=== PATIENT | female | born 1975 | race Caucasian/White ===

== ENCOUNTER 2017-10-07 20:41 | Emergency (ER) | payer SELFPAY ==
[~2017-10-07] VITALS: Ht 162.6 cm; Wt 59.0 kg
[2017-10-07] MEDS ORDERED: SODIUM CHLORIDE 0.9% 1000ML 1,000 ML IV STA (21:05)
[2017-10-07] MEDS ORDERED: MORPHINE SULFATE 4 MG/ML SYR IV STA (21:05)
[2017-10-07] MEDS ORDERED: METHYLPREDNISOLONE SOD SUCC 125 MG/2ML VIAL ONE (22:50)
[2017-10-07] MEDS ORDERED: FAMOTIDINE 20 MG/2 ML VIAL IV ONE (22:51)
[2017-10-07] MEDS ORDERED: DIPHENHYDRAMINE HCL INJ 50 MG/ML VIAL ONE (22:51)
[2017-10-07] MEDS ORDERED: FAMOTIDINE 20 MG/2 ML VIAL IV STA (22:56)
[2017-10-07 22:57] LABS: BASOPHILS # (AUTO) 0.1 (0.0-0.1); BASOPHILS % 0.6 % (0.0-1.0); EOSINOPHILS # (AUTO) 0.4 (0.0-0.4); EOSINOPHILS % 2.9 % (0.0-6.0); HEMOGLOBIN 15.1 g/dL (12.0-16.0); LYMPHOCYTES # (AUTO) 2.2 (1.0-3.2); LYMPHOCYTES % 18.3 % (18.0-39.1); MEAN CORPUSCULAR HEMOGLOBIN 30.7 pg (28-32); MEAN CORPUSCULAR VOLUME 85.4 fL (81-99); MONOCYTES # (AUTO) 0.5 (0.2-0.8); MONOCYTES % 4.3 % (4.4-11.3); NEUTROPHILS # (AUTO) 8.9 (2.1-6.9); NEUTROPHILS % 73.6 % (38.7-80.0); PLATELET COUNT 188 x10e3/uL (140-360); RED BLOOD COUNT 4.92 x10e6/uL (3.6-5.1); RED CELL DISTRIBUTION WIDTH 12.5 % (11.7-14.4)
[2017-10-07] MEDS ORDERED: DIPHENHYDRAMINE HCL INJ 50 MG/ML VIAL IV ONE (23:00)
[2017-10-07] MEDS ORDERED: METHYLPREDNISOLONE SOD SUCC 125 MG/2ML VIAL IV ONE (23:00)
[2017-10-07 23:14] LABS: ALANINE AMINOTRANSFERASE 14 IU/L (0-55); ALBUMIN 3.6 g/dL (3.5-5.0); ALBUMIN/GLOBULIN RATIO 1.1 (0.8-2.0); ALKALINE PHOSPHATASE 86 IU/L (40-150); AMYLASE 25 U/L (25-125); BLOOD UREA NITROGEN 7 mg/dL (7-26); BUN/CREATININE RATIO 10 (6-25); CALCIUM 9.4 mg/dL (8.4-10.2); CARBON DIOXIDE 24 mmol/L (22-29); CHLORIDE 103 mmol/L (98-107); CREATININE, SERUM 0.72 mg/dL (0.57-1.11); EST GLOMERULAR FILTRATION RATE > 60 ML/MIN (60-); GLUCOSE 281 mg/dL (74-118); LIPASE 24 U/L (8-78); SODIUM 135 mmol/L (136-145)
[2017-10-07] MEDS ORDERED: KETOROLAC TROMETHAMINE 30 MG/ML VIAL IV STA (23:48)
[2017-10-07] MEDS ORDERED: KETOROLAC TROMETHAMINE 30 MG/ML VIAL ONE (23:50)
[2017-10-07] MEDS ORDERED: MORPHINE SULFATE 2 MG/ML SYR ONE (23:51)
[2017-10-08 00:41] VITALS: BP 136/72
== END 2017-10-08 00:43 | disposition home or self-care (01) ==
LOC: ER 20:41
DX: K02.9 Dental caries, unspecified (principal); R21 Rash and other nonspecific skin eruption
CPT/HCPCS: 36415; 80053; 82150; 83690; 85025; 99283; J1200; J1885; J2270; J2930

== ENCOUNTER 2017-12-17 10:52 | Emergency (ER) | payer SELFPAY ==
[~2017-12-17] VITALS: Ht 162.6 cm; Wt 61.7 kg
[2017-12-17] MEDS ORDERED: MORPHINE SULFATE INJ 4 MG/ML INJ IV STA ×2 (11:06→12:19)
[2017-12-17] MEDS ORDERED: ONDANSETRON HCL INJ 2 MG/ML VIAL IV STA (11:06)
[2017-12-17] MEDS ORDERED: SODIUM CHLORIDE 0.9% 1000ML 1,000 ML IV STA (11:06)
[2017-12-17 11:16] LABS: BASOPHILS # (AUTO) 0.1 (0.0-0.1); BASOPHILS % 0.6 % (0.0-1.0); EOSINOPHILS # (AUTO) 0.4 (0.0-0.4); HEMATOCRIT 44.3 % (34.2-44.1); HEMOGLOBIN 15.9 g/dL (12.0-16.0); LYMPHOCYTES # (AUTO) 3.5 (1.0-3.2); LYMPHOCYTES % 35.4 % (18.0-39.1); MEAN CORPUSCULAR HEMOGLOBIN 30.9 pg (28-32); MEAN CORPUSCULAR HGB CONC 35.9 g/dL (31-35); MONOCYTES # (AUTO) 0.5 (0.2-0.8); MONOCYTES % 4.6 % (4.4-11.3); NEUTROPHILS # (AUTO) 5.4 (2.1-6.9); NEUTROPHILS % 55.1 % (38.7-80.0); PLATELET COUNT 198 x10e3/uL (140-360); RED BLOOD COUNT 5.15 x10e6/uL (3.6-5.1); RED CELL DISTRIBUTION WIDTH 12.1 % (11.7-14.4)
[2017-12-17 11:20] LABS: CLARITY,URINE SL CLOUDY (CLEAR); COLOR,URINE YELLOW (YELLOW); KETONES,URINE NEGATIVE (NEGATIVE); LEUKOCYTE ESTERASE ,URINE NEGATIVE (NEGATIVE); NITRITE,URINE NEGATIVE (NEGATIVE); PROTEIN,URINE DIPSTICK NEGATIVE (NEGATIVE); URINE UROBILINOGEN 0.2 mg/dL (0.2 - 1)
[2017-12-17 11:21] LABS: BILIRUBIN,URINE NEGATIVE (NEGATIVE)
[2017-12-17 11:35] LABS: ALANINE AMINOTRANSFERASE 20 IU/L (0-55); ALBUMIN 3.9 g/dL (3.5-5.0); ALBUMIN/GLOBULIN RATIO 1.3 (0.8-2.0); ALKALINE PHOSPHATASE 93 IU/L (40-150); AMYLASE 35 U/L (25-125); ANION GAP 12.7 mmol/L (8-16); BACTERIA,URINE FEW /HPF; BLOOD UREA NITROGEN 11 mg/dL (7-26); BUN/CREATININE RATIO 14 (6-25); CALCIUM 9.6 mg/dL (8.4-10.2); CARBON DIOXIDE 26 mmol/L (22-29); CHLORIDE 100 mmol/L (98-107); CREATININE, SERUM 0.78 mg/dL (0.57-1.11); EPITHELIAL CELLS,URINE MODERATE /LPF; EST GLOMERULAR FILTRATION RATE > 60 ML/MIN (60-); GLUCOSE 297 mg/dL (74-118); LIPASE 71 U/L (8-78); POTASSIUM 3.7 mmol/L (3.5-5.1); RBC,URINE 0-5 /HPF (0-5); SODIUM 135 mmol/L (136-145)
--- NOTE | 2017-12-17 12:46 | Diagnostic Imaging Report ---
EXAM: Right Upper Quadrant Ultrasound INDICATION: \S\ABD PAIN \S\Y COMPARISON: None. TECHNIQUE: Transverse and longitudinal images of the right upper abdomen were obtained. FINDINGS: Liver: Size: 17.4 cm in the right midclavicular line, mildly enlarged Appearance: Normal echogenicity, smooth contour Mass: No focal masses Gallbladder: Stones/Sludge: 0.9 cm echogenic structure adherent to the gallbladder wall. Wall: 0.2 cm Appearance: No pericholecystic fluid or hydrops. Sonographic Guzman's Sign: Negative Bile Ducts: Intrahepatic Ducts: No dilatation Extrahepatic Ducts: Common bile duct measures 0.5 cm, no dilatation Pancreas: Visualized pancreas is unremarkable. Right Kidney: Size: 10.2 cm Echogenicity: Normal Parenchymal thickness: Normal Collecting system: No hydronephrosis Stones: None Cyst/Mass: None Vessels: Aorta: Visualized portions are normal Inferior Vena Cava: Visualized portions are normal Main Portal Vein: 1.4 cm, slightly dilated with hepatopetal flow. Free Fluid: No ascites or pleural effusion IMPRESSION: 0.9 cm gallbladder polyp versus adherent stone. Recommend follow-up in one year to ensure stability. Mild hepatomegaly. Signed by: Dr. Kvng Gifford MD on 12/17/2017 12:42 PM
--- NOTE | 2017-12-17 13:28 | Diagnostic Imaging Report ---
EXAM: CT Abdomen and Pelvis WITH contrast INDICATION: \S\RLQ ABDOMINAL PAIN R/O APPY \[id number] \S\1215 \S\Y COMPARISON: Right upper quadrant ultrasound of the same date. TECHNIQUE: Abdomen and pelvis were scanned utilizing a multidetector helical scanner from the lung base to the pubic symphysis after administration of IV contrast. Coronal and sagittal reformations were obtained. Routine protocol was performed. Scan was performed when during portal venous phase. IV CONTRAST: 100 mL of Isovue-370 ORAL CONTRAST: Water COMPLICATIONS: None RADIATION DOSE: Total DLP: 715.4 mGy*cm Estimated effective dose: (DLP x 0.015 x size factor) mSv CTDIvol has been reviewed. It is below the limits set by the Radiation Protocol Committee (RPC). FINDINGS: LINES and TUBES: None. LOWER THORAX: Unremarkable. Mild dependent atelectasis. HEPATOBILIARY: Mild hepatomegaly. No focal hepatic lesions. Fat deposition along the falciform ligament. No biliary ductal dilation. GALLBLADDER: Gallbladder wall hyperdensity is again seen (series 2, image 31). No wall thickening. SPLEEN: No splenomegaly. PANCREAS: No focal masses or ductal dilatation. ADRENALS: No adrenal nodules KIDNEYS/URETERS: Kidneys enhance symmetrically. No hydronephrosis. No cystic or solid mass lesions. No stones. GI TRACT: No abnormal distention, wall thickening, or evidence of bowel obstruction. Appendix is normal. PELVIC ORGANS/BLADDER: Unremarkable. LYMPH NODES: No lymphadenopathy. VESSELS: There is mild atherosclerotic disease in the aorta and major arterial branches. PERITONEUM / RETROPERITONEUM: No free air or fluid. BONES: Unremarkable. SOFT TISSUES: Unremarkable. IMPRESSION: 1. No acute inflammatory process in the abdomen/pelvis. Specifically, no evidence of appendicitis. 2. Gallbladder hyperdensity is again seen, which may represent a gallstone or a polyp. Signed by: Dr. Kvng Gifford MD on 12/17/2017 1:25 PM
[2017-12-17] MEDS ORDERED: KETOROLAC TROMETHAMINE 30 MG/ML VIAL IV STA (14:38)
[2017-12-17] MEDS ORDERED: SODIUM CHLORIDE 0.9% 50ML 50 ML ONE (14:56)
[2017-12-17] MEDS ORDERED: IOPAMIDOL 370 MG/ML 200 ML INFUS..BTL INJ ONE (14:56)
[2017-12-17] MEDS ORDERED: HYDROMORPHONE 1MG/1ML INJ IV ONE (15:45)
== END 2017-12-17 16:22 | disposition home or self-care (01) ==
LOC: ER 10:52
DX: R10.11 Right upper quadrant pain (principal); R11.0 Nausea; N39.0 Urinary tract infection, site not specified; R19.7 Diarrhea, unspecified
CPT/HCPCS: 36415; 74177; 76705; 80053; 81001; 82150; 83690; 85025; 99284; J1885; J2270; J2405; J7030; Q9967

== ENCOUNTER 2019-12-16 20:16 | Emergency (ER) | payer SELFPAY ==
[~2019-12-16] VITALS: Ht 160 cm; Wt 61.7 kg
[2019-12-16] MEDS ORDERED: TRAMADOL HCL 50 MG TAB PO ONE (20:30)
[2019-12-16] MEDS ORDERED: KETOROLAC TROMETHAMINE 60 MG/2 ML VIAL IM ONE (20:30)
--- NOTE | 2019-12-16 20:49 | Emergency Department Note ---
History of Present Illnes History of Present Illness Chief Complaint: Back Pain History of Present Illness This is a 43 year old female PRESENTS TO THE ER WITH COMPLAINT OF BACK PAIN THAT RADIATES DOWN LEFT LEG AND PELVIS. PATIENT STATES THAT SHE GOT UP ABOUT 3 AM THIS MORNING AND FELL OVER HER CAT. SHE TOOK A FLEXERIL AND IBUPROFEN AND WENT BACK TO BED. SHE GOT UP 3 HOURS LATER AND HAD WORSE PAIN. . Historian: Patient Arrival Mode: Car Onset (how long ago): hour(s) (15) Location: LOW BACK, LEFT HIP, Quality: PAIN TO LOW BACK, LEFT HIP, RADIATES DOWN LEFT LEG Radiation: Reports extremity (LEFT LEG) Severity: moderate Onset quality: sudden Duration (how long): hour(s) (15) Timing of current episode: constant Progression: worsening Context: Reports trauma/injury (FELL); Denies recent illness, Denies recent surgery Relieving factors: none Exacerbating factors: movement Associated symptoms: Reports denies other symptoms Treatments prior to arrival: NSAID, other (FLEXERIL) Past Medical/Family History Physician Review I have reviewed the patient's past medical and family history. Any updates have been documented here. Past Medical History Recent Fever: No Clinical Suspicion of Infectio: No New/Unexplained Change in Ment: No Other Medical History: ADD Past Surgical History: Hysterectomy Other Surgery: 4 CS BLADDER SUSPENSION-scar tissue removal NECK SX Social History Smoking Cessation: Current every day smoker Alcohol Use: None Any Illegal Drug Use: Yes Physically hurt or threatened: No Family History Family history of heart diseas: No Other Last Tetanus: Unknown Any Pre-Existing Lines (PICC,: No Review of Systems Review of Systems Constitutional: Reports no symptoms EENTM: Reports no symptoms Cardiovascular: Reports no symptoms Respiratory: Reports no symptoms Gastrointestinal: Reports no symptoms Genitourinary: Reports no symptoms Musculoskeletal: Reports as per HPI Integumentary: Reports no symptoms Neurological: Reports no symptoms Psychological: Reports no symptoms Endocrine: Reports no symptoms Hematological/Lymphatic: Reports no symptoms Physical Exam Related Data Allergies: Coded Allergies: latex (Verified Allergy, Severe, 12/17/17) Penicillins (Verified Allergy, Intermediate, 12/17/17) clindamycin (Verified Allergy, Unknown, 12/17/17) Triage Vital Signs Vital Signs Date Time Temp Pulse Resp B/P (MAP) Pulse Ox O2 Delivery O2 Flow Rate FiO2 12/16/19 20:28 98.2 86 20 122/57 99 Room Air Vital signs reviewed: Yes Physical Exam CONSTITUTIONAL Constitutional: Present well-developed, Present well-nourished, Present distressed (MILD) HENT HENT: Present normocephalic, Present atraumatic, Present oropharynx clear/moist, Present nose normal HENT L/R: Present left ext ear normal, Present right ext ear normal EYES Eyes: Reports PERRL, Reports conjunctivae normal NECK Neck: Present ROM normal PULMONARY Pulmonary: Present effort normal, Present breath sounds normal CARDIOVASCULAR Cardiovascular: Present regular rhythm, Present heart sounds normal, Present capillary refill normal, Present normal rate GASTROINTESTINAL Abdominal: Present soft, Present nontender, Present bowel sounds normal GENITOURINARY Genitourinary: Present exam deferred SKIN Skin: Present warm, Present dry MUSCULOSKELETAL PT WITH MIDLINE TENDERNESS TO LOWER BACK, NO STEP OFF OR DEFORMITY NOTED, PAIN TO LEFT HIP WITH PALPATION OF SOFT TISSUE POSTERIOR ASPECT. PAIN RADIATES DOWN LEFT LEG WITH MOVEMENT. PULSES INTACT NEUROLOGICAL Neurological: Present alert, Present oriented x 3, Present no gross motor or sensory deficits PSYCHOLOGICAL Psychological: Present mood/affect normal, Present judgement normal Results Imaging Imaging results reviewed: Yes Impressions Procedure: [id number] DX/LUMBAR 3 VIEW Exam Date: Exam Time: REPORT STATUS: Signed Xray Lumbar Spine 3 views HISTORY: Pain. COMPARISON: None available. DISCUSSION: Some of the osseous structures are partially obscured by stool and bowel gas. There are five non-rib bearing lumbar vertebral bodies. The alignment of the spine is within normal limits. No displaced fracture or compression deformity is identified. Disc Spaces: The disc spaces are well maintained. Multilevel disc osteophytes. Facets: Mild degenerative sclerotic facet arthropathy in the mid to lower lumbar spine. No dislocations. IMPRESSION: No acute radiographic osseous abnormality. Mild degenerative changes in the mid to lower lumbar spine. Signed by: Kate Dangelo DO on 12/16/2019 10:12 PM Dictated By: KATE DANGELO DO 11 Transcribed By: CHARLOTTE on 12/16/192211 Procedure: [id number] DX/HIP LEFT 2-3 VW (+/- PELVIS) Exam Date: Exam Time: REPORT STATUS: Signed X-ray pelvis 1 view and left hip 2 views HISTORY: Pain. COMPARISON: None available. FINDINGS: Bones: No acute displaced fracture. Osseous alignment is within normal limits. Benign bone cyst in the right femoral neck. Joints: The joint spaces are well-maintained. Soft tissues: Vascular calcifications. IMPRESSION: No acute radiographic osseous abnormality. Signed by: Kate Dangelo DO on 12/16/2019 10:13 PM Dictated By: KATE DANGELO DO 12 Transcribed By: CHARLOTTE on 12/16/192212 COPY TO: JEOVANY DOZIER MD~ Assessment & Plan Medical Decision Making MDM PT WITH LOW BACK AND LEFT HIP PAIN S/P FALL LUMBAR SPINE, LEFT HIP XRAYS ORDERED TO EVAL FOR FRACTURE TORADOL 60 MG IM ORDERED TRAMADOL 50 MG PO ORDERED Assessment & Plan Final Impression: (1) Lumbar strain (2) Sciatica, left side Depart Disposition: HOME, SELF-CARE Last Vital Signs Date Time Temp Pulse Resp B/P (MAP) Pulse Ox O2 Delivery O2 Flow Rate FiO2 12/16/19 20:28 98.2 86 20 122/57 99 Room Air Medications in the ED Tramadol HCl 50 mg ONCE ONCE PO ; Start 12/16/19 at 20:30; Stop 12/16/19 at 20:37; Status DC Ketorolac Tromethamine 60 mg ONCE ONCE IM ; Start 12/16/19 at 20:30; Stop 12/16/19 at 20:37; Status DC JEOVANY DOZIER MD Dec 16, 2019 20:48
--- NOTE | 2019-12-16 22:16 | Diagnostic Imaging Report ---
Xray Lumbar Spine 3 views HISTORY: Pain. COMPARISON: None available. DISCUSSION: Some of the osseous structures are partially obscured by stool and bowel gas. There are five non-rib bearing lumbar vertebral bodies. The alignment of the spine is within normal limits. No displaced fracture or compression deformity is identified. Disc Spaces: The disc spaces are well maintained. Multilevel disc osteophytes. Facets: Mild degenerative sclerotic facet arthropathy in the mid to lower lumbar spine. No dislocations. IMPRESSION: No acute radiographic osseous abnormality. Mild degenerative changes in the mid to lower lumbar spine. Signed by: Ari Dangelo DO on 12/16/2019 10:12 PM
--- NOTE | 2019-12-16 22:17 | Diagnostic Imaging Report ---
X-ray pelvis 1 view and left hip 2 views HISTORY: Pain. COMPARISON: None available. FINDINGS: Bones: No acute displaced fracture. Osseous alignment is within normal limits. Benign bone cyst in the right femoral neck. Joints: The joint spaces are well-maintained. Soft tissues: Vascular calcifications. IMPRESSION: No acute radiographic osseous abnormality. Signed by: Ari Dangelo DO on 12/16/2019 10:13 PM
--- OUTSIDE RECORDS SUMMARY | 2019-12-19 19:20 | XMS REPORT | Continuity of Care Document ---
Author Author [facility] t Organization [facility] Address [address] [place] [address] Phone Unavailable Care Team Providers Care Property Caretaker Name Role Phone NO, PCP PCP Unavailable Cass DOZIER Attphys Unavailable Yayo RAMIREZ Attphys Unavailable Problems Condition Name Condition Details Condition Category Status Onset Date Resolution Date Last Treatment Date Treating Clinician Comments Source Strain of lumbar region Problem Active [facility] Sciatica of left side Problem Active [facility] Allergies, Adverse Reactions, Alerts Allergy Name Allergy Type Status Severity Reaction(s) Onset Date Inacti ve Date Treating Clinician Comments Source Clindamycin Allergy to substance Active 2017-12-17 00:00:00 [facility] Latex Allergy to substance Active Severe 2017-12-17 00:00:00 [facility] Penicillin Allergy to substance Active Moderate 2017-12-17 00:00:0 0 [facility] Social History Social Habit Start Date Stop Date Quantity Comments Source Sex Assigned At 1975 00:00:00 1975 00:00:00 Female [facility] Medications This patient has no known medications. Vital Signs Vital Name Observation Time Observation Value Comments Source Weight 2019-12-16 20:28:00 136 [lb_av] [facility] BMI (Body Mass Index) 2019-12-16 20:28:00 24.1 kg/m2 [facility] Procedures This patient has no known procedures. Plan of Care Planned Activity Planned Date Details Comments Source Instructions Strains [facility] Instructions Sciatica [facility] Instructions Back Pain [facility] Encounters Start Date/Time End Date/Time Encounter Type Admission Type Attendi [facility] Care Department Encounter ID Source 2017-12-17 10:52:00 2017-12-17 16:22:00 Departed Emergency Room 1 ONEAL RAMIREZ [facility] [id number] [facility] 2017-10-07 20:41:00 2017-10-08 00:43:00 Departed Emergency Room [facility] [id number] [facility] Results Test Description Test Time Test Comments Results Result Comments Source HIP LEFT 2-3 VW (+/- PELVIS) 2019-12-16 22:12:00 [place] [address] Patient Name: TAWANDA MOODY MR #: [id number] : 1975 Age/Sex: 43/F Req #: [id number] Adm Physician: Ordered by: JEOVANY DOZIER MD Report #: [id number] Location: ER Room/Bed: Procedure: [id number] DX/HIP LEFT 2-3 VW (+/- PELVIS) Exam Date: Exam Time: REPORT STATUS: Signed X-ray pelvis 1 view and left hip 2 views HISTORY: Pain. COMPARISON: None available. FINDINGS: Bones: No acute displaced fracture. Osseous alignment is within normal limits. Benign bone cyst in the right femoral neck. Joints: The joint spaces are well-maintained. Soft tissues: Vascular calcifications. IMPRESSION: No acute radiographic osseous abnormality. Signed by: Ari Dangelo DO on 12/16/2019 10:13 PM Dictated By: ARI DANGELO DO 12 Transcribed By: CHARLOTTE on 12/16/192212 COPY TO: JEOVANY DOZIER MD LUMBAR 3 VIEW 2019-12-16 22:11:00 [place] [address] Patient Name: TAWANDA MOODY MR #: [id number] : 1975 Age/Sex: 43/F Req #: [id number] Adm Physician: Ordered by: JEOVANY DOZIER MD Report #: [id number] Location: ER Room/Bed: Procedure: [id number] DX/LUMBAR 3 VIEW Exam Date: 12/16/19 Exam Time: 2127 REPORT STATUS: Signed Xray Lumbar Spine 3 views HISTORY: Pain. COMPARISON: None available. DISCUSSION: Some of the osseous structures are partially obscured by stool and bowel gas. There are five non-rib bearing lumbar vertebral bodies. The alignment of the spine is within normal limits. No displaced fracture or compression deformity is identified. Disc Spaces: The disc spaces are well maintained. Multilevel disc osteophytes. Facets: Mild degenerative sclerotic facet arthropathy in the mid to lower lumbar spine. No dislocations. IMPRESSION: No acute radiographic osseous abnormality. Mild degenerative changes in the mid to lower lumbar spine. Signed by: Ari Dangelo DO on 12/16/2019 10:12 PM Dictated By: ARI DANGELO DO 11 Transcribed By: CHARLOTTE on 12/16/192211 COPY TO: JEOVANY DOZIER MD CT ABDOMEN/PELVIS W 2017-12-17 13:08:00 [place] [address] Patient Name: TAWANDA MOODY MR #: [id number] : 1975 Age/Sex: 41/F Req #: [id number] [facility] Physician: Ordered by: BRIANDA ESTRELLA NP Report #: [id number] Location: ER Room/Bed: Procedure: [id number] CT/CT ABDOMEN/PELVIS W Exam Date: 12/17/17 Exam Time: 1215 REPORT STATUS: Signed EXAM: CT Abdomen and Pelvis WITH contrast INDICATION: COMPARISON: Right upper quadrant ultrasound of the same date. TECHNIQUE: Abdomen and pelvis were scanned utilizing a multidetector helical scanner from the lung base to the pubic symphysis after administration of IV contrast. Coronal and sagittal reformations were obtained. Routine protocol was performed. Scan was performed when during portal venous phase. IV CONTRAST: 100 mL of Isovue-370 ORAL CONTRAST: Water COMPLICATIONS: None RADIATION DOSE: Total DLP: 715.4 mGy*cm Estimated effective dose: (DLP x 0.015 x size factor) mSv CTDIvol has been reviewed. It is below the limits set by the Radiation Protocol Committee (RPC). FINDINGS: LINES and TUBES: None. LOWER THORAX: Unremarkable. Mild dependent atelectasis. HEPATOBILIARY: Mild hepatomegaly. No focal hepatic lesions. Fat deposition along the falciform ligament. No biliary ductal dilation. GALLBLADDER: Gallbladder wall hyperdensity is again seen (series 2, image 31). No wall thickening. SPLEEN: No splenomegaly. PANCREAS: No focal masses or ductal dilatation. ADRENALS: No adrenal nodules KIDNEYS/URETERS: Kidneys enhance symmetrically. No hydronephrosis. No cystic or solid mass lesions. No stones. GI TRACT: No abnormal distention, wall thickening, or evidence of bowel obstruction. Appendix is normal. PELVIC ORGANS/BLADDER: Unremarkable. LYMPH NODES: No lymphadenopathy. VESSELS: There is mild atherosclerotic disease in the aorta and major arterial branches. PERITONEUM / RETROPERITONEUM: No free air or fluid. BONES: Unremarkable. SOFT TISSUES: Unremarkable. IMPRESSION: 1. No acute inflammatory process in the abdomen/pelvis. Specifically, no evidence of appendicitis. 2. Gallbladder hyperdensity is again seen, which may represent a gallstone or a polyp. Signed by: Dr. Kvng Black MD on 12/17/2017 1:25 PM Dictated By: KVNG BLACK MD 1325 Transcribed By: CHARLOTTE on 12/17/17 1325 COPY TO: BRIANDA ESTRELLA NP US GALLBLADDER 2017-12-17 12:37:00 [place] [address] Patient Name: TAWANDA MOODY MR #: [id number] : 1975 Age/Sex: 41/F Req #: [id number] Adm Physician: Ordered by: BRIANDA ESTRELLA [employer] Report #: [id number] Location: ER Room/Bed: Procedure: [id number] US/US GALLBLADDER Exam Date: Exam Time: REPORT STATUS: Signed EXAM: Right Upper Quadrant Ultrasound INDICATION: COMPARISON: None. TECHNIQUE: Transverse and longitudinal images of the right upper abdomen were obtained. FINDINGS: Liver: Size: 17.4 cm in the right midclavicular line, mildly enlarged Appearance: Normal echogenicity, smooth contour Mass: No focal masses Gallbladder: Stones/Sludge: 0.9 cm echogenic structure adherent to the gallbladder wall. Wall: 0.2 cm Appearance: No pericholecystic fluid or hydrops. Sonographic Guzman's Sign: Negative Bile Ducts: Intrahepatic Ducts: No dilatation Extrahepatic Ducts: Common bile duct measures 0.5 cm, no dilatation Pancreas: Visualized pancreas is unremarkable. Right Kidney: Size: 10.2 cm Echogenicity: Normal Parenchymal thickness: Normal Collecting system: No hydronephrosis Stones: None Cyst/Mass: None Vessels: Aorta: Visualized portions are normal Inferior Vena Cava: Visualized portions are normal Main Portal Vein: 1.4 cm, slightly dilated with hepatopetal flow. Free Fluid: No ascites or pleural effusion IMPRESSION: 0.9 cm gallblad casey polyp versus adherent stone. Recommend follow-up in one year to ensure stability. Mild hepatomegaly. Signed by: Dr. Kvng Black MD on 12/17/2017 12:42 PM Dictated By: KVNG BLACK MD 1242 Transcribed By: CHARLOTTE on 12/17/17 1242 COPY TO: BRIANDA ESTRELLA NP Urine WBC 2017-12-17 11:36:00 Test Item Urine WBC (test code = 5821-4) 6-10 0-5 [facility] [id number] 11:36:00* Test Item Value Reference Range Interpretation Comments Urine RBC (test code = 33254-6) 0-5 0-5 [facility] Vgqhxxry8584-47-64 11:36:00* Test Item Value Reference Range Interpretation Comments Urine Bacteria (test code = 37070-7) FEW NONE [facility] Epithelial Dnrtf9349-77-22 11:36:00 * Test Item Value Reference Range Interpretation Comments Urine Epithelial Cells (test code = 05368-9) MODERATE NONE [facility] Xievg3660-64-09 11:36:00* Test Item Value Reference Range Interpretation Comments Sodium Level (test code = 2951-2) 135 136-145 L [facility] Kvpcv8767-87-63 11:36:00* Test Item Value Reference Range Interpretation Comments Potassium Level (test code = 2823-3) 3.7 3.5-5.1 [facility]entonChloride Pjemw6302-00-33 11:36:00* Test Item Value Reference Range Interpretation Comments Chloride Level (test code = 2075-0) 100 98-107 [facility]entonCarbon Dioxide Irgwu5504-63-49 11:36:00* Test Item Value Reference Range Interpretation Comments Carbon Dioxide Level (test code = 2028-9) 26 22-29 [facility]Anion Xpn1992-74-43 11:36:00* Test Item Value Reference Range Interpretation Comments Anion Gap (test code = 25228-8) 12.7 8-16 [facility] Urea Rzweecub1000-27-10 11:36:00* Test Item Value Reference Range Interpretation Comments Blood Urea Nitrogen (test code = 3094-0) 11 7-26 [facility]Creatinine2018-07-30 11:36:00* Test Item Value Reference Range Interpretation Comments Creatinine (test code = 2160-0) 0.78 0.57-1.11 [facility]BUN/Creatinine Rfnjr8058-73-66 11:36:00* Test Item Value Reference Range Interpretation Comments BUN/Creatinine Ratio (test code = 3097-3) 14 6- [facility]at Glomerular Filtration Rate 2017-12-17 11:36:00* Test Item Value Reference Range Interpretation Comments Estimat Glomerular Filtration Rate (test code = 73871-9) 60- >60 Ranges were taken from the National Kidney Disease Education Program and the [facility] literature.Reference ranges:60 or greater: Vynwhv65-91 ( for 3 consecutive months): Chronic kidney disease 15 or less: Kidney failureTexas Health DentonGlucose Twrdy1803-83-51 11:36:00* Test Item Value Reference Range Interpretation Comments Glucose Level (test code = DSU3118) 297 74-118 H [facility]entonCalcium Vnrzl5043-78-55 11:36:00* Test Item Value Reference Range Interpretation Comments Calcium Level (test code = 22817-0) 9.6 8.4-10.2 [facility]Total Uqojcdauc3226-99-50 11:36:00* Test Item Value Reference Range Interpretation Comments Total Bilirubin (test code = 1975-2) 0.5 0.2-1.2 [facility]entonAspartate Amino Transf (AST/SGOT) 2017-12-17 11:36:00* Test Item Value Reference Range Interpretation Comments Aspartate Amino Transf (AST/SGOT) (test code = Aspartate Amino Transf (AST/SGOT)) 11 5-34 [facility]entonAlanine Aminotransferase (ALT/SGPT) 2017-12-17 11:36:00* Test Item Value Reference Range Interpretation Comments Alanine Aminotransferase (ALT/SGPT) (test code = 1742-6) 20 0-55 [facility]entonTotal Hoxjcfh7738-38-49 11:36:00* Test Item Value Reference Range Interpretation Comments Total Protein (test code = 2885-2) 7.0 6.5-8.1 [facility]entonAlbumin2018-07-30 11:36:00* Test Item Value Reference Range Interpretation Comments Albumin (test code = 1751-7) 3.9 3.5-5.0 [facility]entonGlobulin2018-07-30 11:36:00* Test Item Value Reference Range Interpretation Comments Globulin (test code = 91213-6) 3.1 2.3-3.5 [facility]entonAlbumin/Globulin Anydg3214-97-54 11:36:00 * Test Item Value Reference Range Interpretation Comments Albumin/Globulin Ratio (test code = 1759-0) 1.3 0.8-2.0 [facility]entonAlkaline Xpirwyvoynk2979-75-94 11:36:00* Test Item Value Reference Range Interpretation Comments Alkaline Phosphatase (test code = 6768-6) 93 40-150 [facility]entonAmylase Qzawz8746-11-84 11:36:00* Test Item Value Reference Range Interpretation Comments Amylase Level (test code = 1798-8) 35 25-125 [facility]entonLipase2018-07-30 11:36:00* Test Item Value Reference Range Interpretation Comments Lipase (test code = 3040-3) 71 8-78 [facility]rine Bvdbz0841-33-99 11:21:00* Test Item Value Reference Range Interpretation Comments Urine Color (test code = 5778-6) YELLOW YELLOW [facility]rine Svqqoqe0030-85-32 11:21:00* Test Item Value Reference Range Interpretation Comments Urine Clarity (test code = 57459-5) SL CLOUDY CLEAR [facility]entonUrine Specific Yskdzmz5792-71-00 11:21:00 * Test Item Value Reference Range Interpretation Comments Urine Specific [place] (test code = 5811-5) 1.025 1.010-1.02 5 [facility]entonUrine lF1557-64-34 11:21:00* Test Item Value Reference Range Interpretation Comments Urine pH (test code = 77190-0) 6 5-7 [facility] Leukocyte Vfyxuniy0541-30-72 11:21:00* Test Item Value Reference Range Interpretation Comments Urine Leukocyte Esterase (test code = 5799-2) NEGATIVE NEGATIVE [facility] Pnqzvnu2458-01-45 11:21:00* Test Item Value Reference Range Interpretation Comments Urine Nitrite (test code = 92148-7) NEGATIVE NEGATIVE [facility] Klmjppg5363-50-30 11:21:00* Test Item Value Reference Range Interpretation Comments Urine Protein (test code = 5804-0) NEGATIVE NEGATIVE [facility]entonUrine Glucose (UA)2017-12-17 11:21:00* Test Item Value Reference Range Interpretation Comments Urine Glucose (UA) (test code = 2349-9) 3+ NEGATIVE H [facility]entonUrine Kveroec1460-31-42 11:21:00* Test Item Value Reference Range Interpretation Comments Urine Ketones (test code = 37790-7) NEGATIVE NEGATIVE [facility]entonUrine Zzctghtelobc0453-57-37 11:21:00* Test Item Value Reference Range Interpretation Comments Urine Urobilinogen (test code = 64655-0) 0.2 0.2-1 [facility]entonUrine Oyfhnjvjd8532-12-30 11:21:00* Test Item Value Reference Range Interpretation Comments Urine Bilirubin (test code = 1978-6) NEGATIVE NEGATIVE [facility]entonUrine Vfixm2434-41-61 11:21:00* Test Item Value Reference Range Interpretation Comments Urine Blood (test code = 08921-4) NEGATIVE NEGATIVE [facility]entonWhite Blood Dlasv7402-07-79 11:18:00* Test Item Value Reference Range Interpretation Comments White Blood Count (test code = 6690-2) 9.80 4.8-10.8 [facility]entonRed Blood Ztjop9053-56-80 11:18:00* Test Item Value Reference Range Interpretation Comments Red Blood Count (test code = 789-8) 5.15 3.6-5.1 H [facility]entonHemoglobin2018-07-30 11:18:00* Test Item Value Reference Range Interpretation Comments Hemoglobin (test code = 69121-0) 15.9 12.0-16.0 [facility]entonHematocrit2018-07-30 11:18:00* Test Item Value Reference Range Interpretation Comments Hematocrit (test code = 4544-3) 44.3 34.2-44.1 H [facility]entonMean Corpuscular Gqttrk2055-37-84 11:18:00* Test Item Value Reference Range Interpretation Comments Mean Corpuscular Volume (test code = 787-2) 86.0 81-99 [facility]entonMean Corpuscular Wjzppfoadf1180-62-53 11:18:00* Test Item Value Reference Range Interpretation Comments Mean Corpuscular Hemoglobin (test code = 785-6) 30.9 28-32 [facility]entonMean Corpuscular Hemoglobin Concent 2017-12-17 11:18:00* Test Item Value Reference Range Interpretation Comments Mean Corpuscular Hemoglobin Concent (test code = 786-4) 35.9 31-35 H [facility]entonRed Cell Distribution Qnnzc9793-75-63 11:18:00* Test Item Value Reference Range Interpretation Comments Red Cell Distribution Width (test code = 19648-5) 12.1 11.7 -14.4 [facility]entonPlatelet Wvmbe7251-60-04 11:18:00* Test Item Value Reference Range Interpretation Comments Platelet Count (test code = 777-3) 198 140-360 [facility]entonNeutrophils (%) (Auto)2017-12-17 11:18:00 * Test Item Value Reference Range Interpretation Comments Neutrophils (%) (Auto) (test code = 98245-3) 55.1 38.7-80.0 [facility]entonLymphocytes (%) (Auto)2017-12-17 11:18:00 * Test Item Value Reference Range Interpretation Comments Lymphocytes (%) (Auto) (test code = 736-9) 35.4 18.0-39.1 [facility]entonMonocytes (%) (Auto)2017-12-17 11:18:00* Test Item Value Reference Range Interpretation Comments Monocytes (%) (Auto) (test code = 5905-5) 4.6 4.4-11.3 [facility]entonEosinophils (%) (Auto)2017-12-17 11:18:00 * Test Item Value Reference Range Interpretation Comments Eosinophils (%) (Auto) (test code = 713-8) 4.0 0.0-6.0 [facility]entonBasophils (%) (Auto)2017-12-17 11:18:00* Test Item Value Reference Range Interpretation Comments Basophils (%) (Auto) (test code = 706-2) 0.6 0.0-1.0 [facility]entonIM GRANULOCYTES %2017-12-17 11:18:00* Test Item Value Reference Range Interpretation Comments IM GRANULOCYTES % (test code = IM GRANULOCYTES %) 0.3 0.0- 1.0 [facility]entonNeutrophils # (Auto)2017-12-17 11:18:00* Test Item Value Reference Range Interpretation Comments Neutrophils # (Auto) (test code = 751-8) 5.4 2.1-6.9 [facility]entonLymphocytes # (Auto)2017-12-17 11:18:00* Test Item Value Reference Range Interpretation Comments Lymphocytes # (Auto) (test code = 39585-5) 3.5 1.0-3.2 H [facility]entonMonocytes # (Auto)2017-12-17 11:18:00* Test Item Value Reference Range Interpretation Comments Monocytes # (Auto) (test code = 742-7) 0.5 0.2-0.8 [facility]entonEosinophils # (Auto)2017-12-17 11:18:00* Test Item Value Reference Range Interpretation Comments Eosinophils # (Auto) (test code = 711-2) 0.4 0.0-0.4 [facility]Basophils # (Auto)2017-12-17 11:18:00* Test Item Value Reference Range Interpretation Comments Basophils # (Auto) (test code = 704-7) 0.1 0.0-0.1 [facility]entonAbsolute Immature Granulocyte (auto 2017-12-17 11:18:00* Test Item Value Reference Range Interpretation Comments Absolute Immature Granulocyte (auto (cris t code = Absolute Immature Granulocyte (auto) 0.03 0-0.1 [facility] Uewoe8202-96-58 23:17:00* Test Item Value Reference Range Interpretation Comments Sodium Level (test code = 2951-2) 135 136-145 L [facility]entonPotassium Qidwa2934-71-66 23:17:00* Test Item Value Reference Range Interpretation Comments Potassium Level (test code = 2823-3) 4.0 3.5-5.1 [facility]entonChloride Iisso6616-94-08 23:17:00* Test Item Value Reference Range Interpretation Comments Chloride Level (test code = 2075-0) 103 98-107 [facility]entonCarbon Dioxide Zvvle8855-21-63 23:17:00* Test Item Value Reference Range Interpretation Comments Carbon Dioxide Level (test code = 2028-9) 24 22-29 [facility]entonAnion Okl6495-60-10 23:17:00* Test Item Value Reference Range Interpretation Comments Anion Gap (test code = 54026-0) 12.0 8-16 [facility]entonBlood Urea Npvauhfr9141-83-17 23:17:00* Test Item Value Reference Range Interpretation Comments Blood Urea Nitrogen (test code = 3094-0) 7 7-26 [facility]entonCreatinine2018-05-20 23:17:00* Test Item Value Reference Range Interpretation Comments Creatinine (test code = 2160-0) 0.72 0.57-1.11 [facility]entonBUN/Creatinine Jadxj8764-48-71 23:17:00* Test Item Value Reference Range Interpretation Comments BUN/Creatinine Ratio (test code = 3097-3) 10 6-25 [facility]entonEstimat Glomerular Filtration Rate 2017-10-07 23:17:00* Test Item Value Reference Range Interpretation Comments Estimat Glomerular Filtration Rate (test code = 44209-0) 60- >60 Ranges were taken from the National Kidney Disease Education Program and the [facility] Foundation literature.Reference ranges:60 or greater: Tyavrr78-99 ( for 3 consecutive months): Chronic kidney disease 15 or less: Kidney failureTexas Health DentonGlucose Ksomc8674-37-74 23:17:00* Test Item Value Reference Range Interpretation Comments Glucose Level (test code = DWV4045) 281 74-118 H [facility]entonCalcium Jazhl3873-99-70 23:17:00* Test Item Value Reference Range Interpretation Comments Calcium Level (test code = 77193-3) 9.4 8.4-10.2 [facility]entonTotal Ddiedlufa5237-48-16 23:17:00* Test Item Value Reference Range Interpretation Comments Total Bilirubin (test code = 1975-2) 0.6 0.2-1.2 [facility]entonAspartate Amino Transf (AST/SGOT) 2017-10-07 23:17:00* Test Item Value Reference Range Interpretation Comments Aspartate Amino Transf (AST/SGOT) (test code = Aspartate Amino Transf (AST/SGOT)) 8 5-34 [facility]entonAlanine Aminotransferase (ALT/SGPT) 2017-10-07 23:17:00* Test Item Value Reference Range Interpretation Comments Alanine Aminotransferase (ALT/SGPT) (test code = 1742-6) 14 0-55 [facility]entonTotal Ebjsqzo8863-36-93 23:17:00* Test Item Value Reference Range Interpretation Comments Total Protein (test code = 2885-2) 7.0 6.5-8.1 [facility]entonAlbumin2018-05-20 23:17:00* Test Item Value Reference Range Interpretation Comments Albumin (test code = 1751-7) 3.6 3.5-5.0 [facility]entonGlobulin2018-05-20 23:17:00* Test Item Value Reference Range Interpretation Comments Globulin (test code = 26834-7) 3.4 2.3-3.5 [facility]entonAlbumin/Globulin Fvjor2970-61-41 23:17:00 * Test Item Value Reference Range Interpretation Comments Albumin/Globulin Ratio (test code = 1759-0) 1.1 0.8-2.0 [facility]entonAlkaline Rehrhksrnsd6361-87-21 23:17:00* Test Item Value Reference Range Interpretation Comments Alkaline Phosphatase (test code = 6768-6) 86 40-150 [facility]entonAmylase Ldapz3332-99-08 23:17:00* Test Item Value Reference Range Interpretation Comments Amylase Level (test code = 1798-8) 25 25-125 [facility]entonLipase2018-05-20 23:17:00* Test Item Value Reference Range Interpretation Comments Lipase (test code = 3040-3) 24 8-78 [facility]entonWhite Blood Hkvja0069-05-05 22:58:00* Test Item Value Reference Range Interpretation Comments White Blood Count (test code = 6690-2) 12.10 4.8-10.8 H [facility]entonRed Blood Ylfwh3989-20-84 22:58:00* Test Item Value Reference Range Interpretation Comments Red Blood Count (test code = 789-8) 4.92 3.6-5.1 [facility]entonHemoglobin2018-05-20 22:58:00* Test Item Value Reference Range Interpretation Comments Hemoglobin (test code = 86273-9) 15.1 12.0-16.0 [facility]entonHematocrit2018-05-20 22:58:00* Test Item Value Reference Range Interpretation Comments Hematocrit (test code = 4544-3) 42.0 34.2-44.1 [facility]entonMean Corpuscular Pmeucm7367-14-07 22:58:00* Test Item Value Reference Range Interpretation Comments Mean Corpuscular Volume (test code = 787-2) 85.4 81-99 [facility]entonMean Corpuscular Fwjfsubbqf5513-31-28 22:58:00* Test Item Value Reference Range Interpretation Comments Mean Corpuscular Hemoglobin (test code = 785-6) 30.7 28-32 [facility]entonMean Corpuscular Hemoglobin Concent 2017-10-07 22:58:00* Test Item Value Reference Range Interpretation Comments Mean Corpuscular Hemoglobin Concent (test code = 786-4) 36.0 31-35 H [facility]entonRed Cell Distribution Raccw3964-79-19 22:58:00* Test Item Value Reference Range Interpretation Comments Red Cell Distribution Width (test code = 76572-7) 12.5 11.7 -14.4 [facility]entonPlatelet Alccn0562-86-42 22:58:00* Test Item Value Reference Range Interpretation Comments Platelet Count (test code = 777-3) 188 140-360 [facility]entonNeutrophils (%) (Auto)2017-10-07 22:58:00 * Test Item Value Reference Range Interpretation Comments Neutrophils (%) (Auto) (test code = 58963-0) 73.6 38.7-80.0 [facility]entonLymphocytes (%) (Auto)2017-10-07 22:58:00 * Test Item Value Reference Range Interpretation Comments Lymphocytes (%) (Auto) (test code = 736-9) 18.3 18.0-39.1 [facility]entonMonocytes (%) (Auto)2017-10-07 22:58:00* Test Item Value Reference Range Interpretation Comments Monocytes (%) (Auto) (test code = 5905-5) 4.3 4.4-11.3 L [facility]entonEosinophils (%) (Auto)2017-10-07 22:58:00 * Test Item Value Reference Range Interpretation Comments Eosinophils (%) (Auto) (test code = 713-8) 2.9 0.0-6.0 [facility]entonBasophils (%) (Auto)2017-10-07 22:58:00* Test Item Value Reference Range Interpretation Comments Basophils (%) (Auto) (test code = 706-2) 0.6 0.0-1.0 [facility]2017-10-07 22:58:00* Test Item Value Reference Range Interpretation Comments IM GRANULOCYTES % (test code = IM GRANULOCYTES %) 0.3 0.0- 1.0 [facility] # (Auto)2017-10-07 22:58:00* Test Item Value Reference Range Interpretation Comments Neutrophils # (Auto) (test code = 751-8) 8.9 2.1-6.9 [facility] # ([facility])2017-10-07 22:58:00* Test Item Value Reference Range Interpretation Comments Lymphocytes # (Auto) (test code = 54779-8) 2.2 1.0-3.2 [facility] ([facility]2017-10-07 22:58:00* Test Item Value Reference Range Interpretation Comments Monocytes # (Auto) (test code = 742-7) 0.5 0.2-0.8 [facility] ([facility])2017-10-07 22:58:00* Test Item Value Reference Range Interpretation Comments Eosinophils # (Auto) (test code = 711-2) 0.4 0.0-0.4 [facility] ([facility])2017-10-07 22:58:00* Test Item Value Reference Range Interpretation Comments Basophils # (Auto) (test code = 704-7) 0.1 0.0-0.1 [facility] Granulocyte (auto 2017-10-07 22:58:00* Test Item Value Reference Range Interpretation Comments Absolute Immature Granulocyte (auto (cris t code = Absolute Immature Granulocyte (auto) 0.04 0-0.1 [facility]
== END 2019-12-16 22:45 | disposition home or self-care (01) ==
LOC: ER 20:30
DX: M54.32 Sciatica, left side (principal); S39.012A Strain of muscle, fascia and tendon of lower back, initial encounter; W01.0XXA Fall on same level from slipping, tripping and stumbling without subsequent striking against object, initial encounter; Y92.008 Other place in unspecified non-institutional (private) residence as the place of occurrence of the external cause; F98.8 Other specified behavioral and emotional disorders with onset usually occurring in childhood and adolescence
CPT/HCPCS: 72100; 73502; 99283; J1885

== ENCOUNTER 2020-03-19 09:46 | Emergency (ER) | payer SELFPAY ==
[~2020-03-19] VITALS: Ht 162.6 cm; Wt 59.4 kg
[2020-03-19] MEDS ORDERED: LIDOCAINE 1% W/EPINEPHRINE 20 ML VIAL INJ ONE (10:00)
--- NOTE | 2020-03-19 10:03 | Emergency Department Note ---
History of Present Illnes History of Present Illness Chief Complaint: Skin Rash or Abscess History of Present Illness This is a 44 year old female that had on the left side of her mid neck small painful, she squeezed it and started growing. This has been going on for about 2 weeks. Denies any other current points other than postnasal drip.. 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 Any updates have been documented here. Past Medical History Recent Fever: No Clinical Suspicion of Infectio: No New/Unexplained Change in Ment: No Other Medical History: ADD Past Surgical History: Hysterectomy, Other Surgery: 4 CS BLADDER SUSPENSION-scar tissue removal NECK SX Social History Physically hurt or threatened: No Other Last Tetanus: Unknown Review of Systems Review of Systems Constitutional: Reports no symptoms EENTM: Reports no symptoms Cardiovascular: Reports no symptoms Respiratory: Reports no symptoms Gastrointestinal: Reports no symptoms Genitourinary: Reports no symptoms Musculoskeletal: Reports no symptoms Integumentary: Reports as per HPI Neurological: Reports no symptoms Psychological: Reports no symptoms Endocrine: Reports no symptoms Hematological/Lymphatic: Reports no symptoms Physical Exam Related Data Allergies: Coded Allergies: latex (Verified Allergy, Severe, 12/17/17) Penicillins (Verified Allergy, Intermediate, 12/17/17) avocado (Verified Allergy, Unknown, 03/19/20) clindamycin (Verified Allergy, Unknown, 12/17/17) Triage Vital Signs Vital Signs Date Time Temp Pulse Resp B/P (MAP) Pulse Ox O2 Delivery O2 Flow Rate FiO2 03/19/20 09:47 98.7 93 18 135/86 100 Room Air Physical Exam CONSTITUTIONAL Constitutional: Present well-developed, Present well-nourished HENT HENT: Present normocephalic, Present atraumatic, Present oropharynx wojciech ar/moist, Present nose normal HENT L/R: Present left ext ear normal, Present right ext ear normal EYES Eyes: Reports PERRL, Reports conjunctivae normal NECK Neck: Present ROM normal, Present other (mid neck with a 2 x 1 cm abscess, with fluctuance, coming to ahead. No surrounding cellulitis. No pulsatile mass.) PULMONARY Pulmonary: Present effort normal, Present breath sounds normal CARDIOVASCULAR Cardiovascular: Present regular rhythm, Present heart sounds normal, Present capillary refill normal, Present normal rate GASTROINTESTINAL Abdominal: Present soft, Present nontender, Present bowel sounds normal GENITOURINARY Genitourinary: Present exam deferred SKIN Skin: Present warm, Present dry MUSCULOSKELETAL Musculoskeletal: Present ROM normal NEUROLOGICAL Neurological: Present alert, Present oriented x 3, Present no gross motor or sensory deficits PSYCHOLOGICAL Psychological: Present mood/affect normal, Present judgement normal Procedures Incision and Drain Emergent situation: No Risks and benefits discussed: Yes Verbal consent obtained: Yes Written consent obtained: No Consent given by: patient Imaging studies available/revi: not applicable Prepped and draped in sterile: Yes Two patient identifiers confir: name, date of , medical record number Identity confirmed by: patient Site verified: yes Type: abscess Size: 2x1cm Site: other (neck) Patient sedated: No Needle aspiration: No Incision type: single straight Incision depth: dermal Scalpel blade: 11 Wound management: probed and deloculated Drainage: purulent Drainage amount: moderate Wound treatment: wound left open Packing used: none Patient tolerance: tolerated well Procedure attestation: I performed the procedure Assessment & Plan Medical Decision Making MDM [place] with a small superficial abscess, drained, to follow up as needed. Assessment & Plan Final Impression: (1) Abscess Depart Disposition: HOME, SELF-CARE Last Vital Signs Date Time Temp Pulse Resp B/P (MAP) Pulse Ox O2 Delivery O2 Flow Rate FiO2 03/19/20 09:47 98.7 93 18 135/86 100 Room Air Medications in the ED Lidocaine/ Epinephrine 5 ml ONCE ONCE INJ ; Start 03/19/20 at 10:00; Stop 03/19/20 at 10:01 BHASKAR CATES MD Mar 19, 2020 10:03
[2020-03-19] MEDS ORDERED: BACITRACIN ZINC 0.9GM TP ONE ×2 (10:30)
[2020-03-19 11:03] VITALS: BP 126/71
--- OUTSIDE RECORDS SUMMARY | 2020-03-25 17:59 | XMS REPORT | Continuity of Care Document ---
Author Author [facility] t Organization [facility] Address [address] [place] [address] Phone Unavailable Care Team Providers Care Aquatic Facility Manager Name Role Phone NO, PCP PCP Unavailable Cass DOZIER Attphys Unavailable Yayo RAMIREZ Attphys Unavailable Problems Condition Name Condition Details Condition Category Status Onset Date Resolution Date Last Treatment Date Treating Clinician Comments Source Strain of lumbar region Problem Active [facility] Sciatica of left side Problem Active [facility] Allergies, Adverse Reactions, Alerts Allergy Name Allergy Type Status Severity Reaction(s) Onset Date Inacti ve Date Treating Clinician Comments Source Clindamycin Allergy to substance Active 2017-12-17 00:00:00 [facility] Latex Allergy to substance Active Severe 2017-12-17 00:00:00 [facility] Penicillin Allergy to substance Active Moderate 2017-12-17 00:00:0 0 [facility] Social History Social Habit Start Date Stop Date Quantity Comments Source Sex Assigned At 1975 00:00:00 1975 00:00:00 Female [facility] Medications This patient has no known medications. Vital Signs Vital Name Observation Time Observation Value Comments Source Weight 2019-12-16 20:28:00 136 [lb_av] [facility] BMI (Body Mass Index) 2019-12-16 20:28:00 24.1 kg/m2 [facility] Procedures This patient has no known procedures. Plan of Care Planned Activity Planned Date Details Comments Source Instructions Strains [facility] Instructions Sciatica [facility] Instructions Back Pain [facility] Encounters Start Date/Time End Date/Time Encounter Type Admission Type Attendi [facility] Care Department Encounter ID Source 2017-12-17 10:52:00 2017-12-17 16:22:00 Departed Emergency Room 1 ONEAL RAMIREZ [facility] [id number] [facility] 2017-10-07 20:41:00 2017-10-08 00:43:00 Departed Emergency Room [facility] [id number] [facility] Results Test Description Test Time Test Comments Results Result Comments Source HIP LEFT 2-3 VW (+/- PELVIS) 2019-12-16 22:12:00 [place] [address] Patient Name: TAWANDA MOODY MR #: [id number] : 1975 Age/Sex: 43/F Req #: [id number] Adm Physician: Ordered by: JEOVANY DOZIER MD Report #: [id number] Location: ER Room/Bed: Procedure: [id number] DX/HIP LEFT 2-3 VW (+/- PELVIS) Exam [...] DOZIER MD LUMBAR 3 VIEW 2019-12-16 22:11:00 [place] [address] Patient Name: TAWANDA MOODY MR #: [id number] : 1975 Age/Sex: 43/F Req #: [id number] Adm Physician: Ordered by: JEOVANY DOZIER MD Report #: [id number] Location: ER Room/Bed: Procedure: [id number] DX/LUMBAR 3 VIEW Exam Date: 12/16/19 Exam [...] DOZIER MD CT ABDOMEN/PELVIS W 2017-12-17 13:08:00 [place] [address] Patient Name: TAWANDA MOODY MR #: [id number] : 1975 Age/Sex: 41/F [facility] #: [id number] Req #: [id number] [facility] Physician: Ordered by: BRIANDA ESTRELLA NP Report #: [id number] Location: ER Room/Bed: Procedure: [id number] CT/CT ABDOMEN/PELVIS W Exam Date: 12/17/17 Exam [...] BRIANDA ESTRELLA NP US GALLBLADDER 2017-12-17 12:37:00 [place] [address] Patient Name: TAWANDA MOODY MR #: [id number] : 1975 Age/Sex: 41/F Req #: [id number] Adm Physician: Ordered by: BRIANDA ESTRELLA [employer] Report #: [id number] Location: ER Room/Bed: Procedure: [id number] US/US GALLBLADDER Exam Date: Exam Time: REPORT [...] (test code = 5821-4) 6-10 0-5 H [facility]ennialUrine [id number] 11:36:00* Test Item Value Reference Range Interpretation Comments Urine RBC (test code = 79443-5) 0-5 0-5 [facility]ennialUrine Gahyzqoi1425-58-87 11:36:00* Test Item Value Reference Range Interpretation Comments Urine Bacteria (test code = 18805-0) FEW NONE [facility]ennialUrine Epithelial Ykjlx1840-96-61 11:36:00 * Test Item Value Reference Range Interpretation Comments Urine Epithelial Cells (test code = 62742-0) MODERATE NONE [facility] Nfcul5763[facility]81[facility]95 11:36:00* Test Item Value Reference Range Interpretation Comments Sodium Level (test code = 2951-2) 135 136-145 L [facility]ennialPotassium Oenuw9126-25-12 11:36:00* Test Item Value Reference Range Interpretation Comments Potassium Level (test code = 2823-3) 3.7 3.5-5.1 [facility]ennialChloride Guyta2332-42-19 11:36:00* Test Item Value Reference Range Interpretation Comments Chloride Level (test code = 2075-0) 100 98-107 [facility]ennialCarbon Dioxide Wvlns5918-16-97 11:36:00* Test Item Value Reference Range Interpretation Comments Carbon Dioxide Level (test code = 2028-9) 26 22-29 [facility] CentennialAnion Cai5239-33-17 11:36:00* Test Item Value Reference Range Interpretation Comments Anion Gap (test code = 32837-4) 12.7 8-16 [facility]ennialBlood Urea Xxkktgdf2238-53-74 11:36:00* Test Item Value Reference Range Interpretation Comments Blood Urea Nitrogen (test code = 3094-0) 11 7-26 [facility]ennialCreatinine2018-07-30 11:36:00* Test Item Value Reference Range Interpretation Comments Creatinine (test code = 2160-0) 0.78 0.57-1.11 [facility]ennialBUN/Creatinine Vwtbq2442-88-40 11:36:00* Test Item Value Reference Range Interpretation Comments BUN/Creatinine Ratio (test code = 3097-3) 14 6-25 [facility] CentennialEstimat Glomerular Filtration Rate 2017-12-17 11:36:00* Test Item Value Reference Range Interpretation Comments Estimat Glomerular Filtration Rate (test code = 20990-9) 60- >60 Ranges were taken from the National Kidney Disease Education Program and the [facility] literature.Reference ranges:60 or greater: Jqouat10-77 ( for 3 consecutive months): Chronic kidney disease 15 or less: Kidney failureBaylor Scott & [facility] Center – CentennialGlucose Vzjcy6284-59-59 11:36:00* Test Item Value Reference Range Interpretation Comments Glucose Level (test code = SWL7728) 297 74-118 H [facility]ennialCalcium Xmzvk5668-54-61 11:36:00* Test Item Value Reference Range Interpretation Comments Calcium Level (test code = 88403-4) 9.6 8.4-10.2 [facility] CentennialTotal Omiphclpl0443-00-75 11:36:00* Test Item Value Reference Range Interpretation Comments Total Bilirubin (test code = 1975-2) 0.5 0.2-1.2 [facility] CentennialAspartate Amino Transf (AST/SGOT) 2017-12-17 11:36:00* Test Item Value Reference Range Interpretation Comments Aspartate Amino Transf (AST/SGOT) (test code = Aspartate Amino Transf (AST/SGOT)) 11 5-34 [facility]ennialAlanine Aminotransferase (ALT/SGPT) 2017-12-17 11:36:00* Test Item Value Reference Range Interpretation Comments Alanine Aminotransferase (ALT/SGPT) (test code = 1742-6) 20 0-55 [facility] CentennialTotal Nlvzxpy0164-04-52 11:36:00* Test Item Value Reference Range Interpretation Comments Total Protein (test code = 2885-2) 7.0 6.5-8.1 [facility] CentennialAlbumin2018-07-30 11:36:00* Test Item Value Reference Range Interpretation Comments Albumin (test code = 1751-7) 3.9 3.5-5.0 [facility]ennialGlobulin2018-07-30 11:36:00* Test Item Value Reference Range Interpretation Comments Globulin (test code = 09659-0) 3.1 2.3-3.5 [facility] CentennialAlbumin/Globulin Faxvt6898-43-71 11:36:00 * Test Item Value Reference Range Interpretation Comments Albumin/Globulin Ratio (test code = 1759-0) 1.3 0.8-2.0 [facility] CentennialAlkaline Hoqsrvxactm6631-49-82 11:36:00* Test Item Value Reference Range Interpretation Comments Alkaline Phosphatase (test code = 6768-6) 93 40-150 [facility] CentennialAmylase Rsvup4703-72-11 11:36:00* Test Item Value Reference Range Interpretation Comments Amylase Level (test code = 1798-8) 35 25-125 [facility] CentennialLipase2018-07-30 11:36:00* Test Item Value Reference Range Interpretation Comments Lipase (test code = 3040-3) 71 8-78 [facility] CentennialUrine Pbatq3387-96-32 11:21:00* Test Item Value Reference Range Interpretation Comments Urine Color (test code = 5778-6) YELLOW YELLOW [facility] CentennialUrine Hbyrmmq1491-19-24 11:21:00* Test Item Value Reference Range Interpretation Comments Urine Clarity (test code = 15255-2) SL CLOUDY CLEAR [facility] CentennialUrine Specific Dyfnlsh4707-75-60 11:21:00 * Test Item Value Reference Range Interpretation Comments Urine Specific [place] (test code = 5811-5) 1.025 1.010-1.02 5 [facility] CentennialUrine hT7926-38-90 11:21:00* Test Item Value Reference Range Interpretation Comments Urine pH (test code = 83336-7) 6 5-7 [facility] Leukocyte Zfykfdqn8358-65-11 11:21:00* Test Item Value Reference Range Interpretation Comments Urine Leukocyte Esterase (test code = 5799-2) NEGATIVE NEGATIVE [facility] Xrrsvwt2322-75-10 11:21:00* Test Item Value Reference Range Interpretation Comments Urine Nitrite (test code = 68646-3) NEGATIVE NEGATIVE [facility] Glunsku1265-36-66 11:21:00* Test Item Value Reference Range Interpretation Comments Urine Protein (test code = 5804-0) NEGATIVE NEGATIVE [facility] Glucose (UA)2017-12-17 11:21:00* Test Item Value Reference Range Interpretation Comments Urine Glucose (UA) (test code = 2349-9) 3+ NEGATIVE H [facility] CentennialUrine Fsmgfcj1499-20-28 11:21:00* Test Item Value Reference Range Interpretation Comments Urine Ketones (test code = 34358-5) NEGATIVE NEGATIVE [facility] Azfrholcsrbs8029-24-41 11:21:00* Test Item Value Reference Range Interpretation Comments Urine Urobilinogen (test code = 70841-5) 0.2 0.2-1 [facility]ennialUrine Orecdkaef7175-60-22 11:21:00* Test Item Value Reference Range Interpretation Comments Urine Bilirubin (test code = 1978-6) NEGATIVE NEGATIVE [facility] CentennialUrine Ligsl5597-43-39 11:21:00* Test Item Value Reference Range Interpretation Comments Urine Blood (test code = 27483-5) NEGATIVE NEGATIVE [facility] CentennialWhite Blood Aphwx1722-16-39 11:18:00* Test Item Value Reference Range Interpretation Comments White Blood Count (test code = 6690-2) 9.80 4.8-10.8 [facility] CentennialRed Blood Urbue6489-13-16 11:18:00* Test Item Value Reference Range Interpretation Comments Red Blood Count (test code = 789-8) 5.15 3.6-5.1 H [facility] CentennialHemoglobin2018-07-30 11:18:00* Test Item Value Reference Range Interpretation Comments Hemoglobin (test code = 86261-7) 15.9 12.0-16.0 [facility] CentennialHematocrit2018-07-30 11:18:00* Test Item Value Reference Range Interpretation Comments Hematocrit (test code = 4544-3) 44.3 34.2-44.1 H [facility] CentennialMean Corpuscular Vwcbpv7393-51-62 11:18:00* Test Item Value Reference Range Interpretation Comments Mean Corpuscular Volume (test code = 787-2) 86.0 81-99 [facility] CentennialMean Corpuscular Vrvxahsike2134-40-69 11:18:00* Test Item Value Reference Range Interpretation Comments Mean Corpuscular Hemoglobin (test code = 785-6) 30.9 28-32 [facility] CentennialMean Corpuscular Hemoglobin Concent 2017-12-17 11:18:00* Test Item Value Reference Range Interpretation Comments Mean Corpuscular Hemoglobin Concent (test code = 786-4) 35.9 31-35 H [facility] CentennialRed Cell Distribution Myxft9057-18-25 11:18:00* Test Item Value Reference Range Interpretation Comments Red Cell Distribution Width (test code = 99786-3) 12.1 11.7 -14.4 [facility] CentennialPlatelet Ihkpj9437-61-57 11:18:00* Test Item Value Reference Range Interpretation Comments Platelet Count (test code = 777-3) 198 140-360 [facility] CentennialNeutrophils (%) (Auto)2017-12-17 11:18:00 * Test Item Value Reference Range Interpretation Comments Neutrophils (%) (Auto) (test code = 45911-3) 55.1 38.7-80.0 [facility] CentennialLymphocytes (%) (Auto)2017-12-17 11:18:00 * Test Item Value Reference Range Interpretation Comments Lymphocytes (%) (Auto) (test code = 736-9) 35.4 18.0-39.1 [facility] CentennialMonocytes (%) (Auto)2017-12-17 11:18:00* Test Item Value Reference Range Interpretation Comments Monocytes (%) (Auto) (test code = 5905-5) 4.6 4.4-11.3 [facility]ennialEosinophils (%) (Auto)2017-12-17 11:18:00 * Test Item Value Reference Range Interpretation Comments Eosinophils (%) (Auto) (test code = 713-8) 4.0 0.0-6.0 [facility]ennialBasophils (%) (Auto)2017-12-17 11:18:00* Test Item Value Reference Range Interpretation Comments Basophils (%) (Auto) (test code = 706-2) 0.6 0.0-1.0 [facility] CentennialIM GRANULOCYTES %2017-12-17 11:18:00* Test Item Value Reference Range Interpretation Comments IM GRANULOCYTES % (test code = IM GRANULOCYTES %) 0.3 0.0- 1.0 [facility]ennialNeutrophils # (Auto)2017-12-17 11:18:00* Test Item Value Reference Range Interpretation Comments Neutrophils # (Auto) (test code = 751-8) 5.4 2.1-6.9 [facility]ennialLymphocytes # (Auto)2017-12-17 11:18:00* Test Item Value Reference Range Interpretation Comments Lymphocytes # (Auto) (test code = 28884-3) 3.5 1.0-3.2 H [facility]ennialMonocytes # (Auto)2017-12-17 11:18:00* Test Item Value Reference Range Interpretation Comments Monocytes # (Auto) (test code = 742-7) 0.5 0.2-0.8 [facility]ennialEosinophils # (Auto)2017-12-17 11:18:00* Test Item Value Reference Range Interpretation Comments Eosinophils # (Auto) (test code = 711-2) 0.4 0.0-0.4 [facility]ennialBasophils # (Auto)2017-12-17 11:18:00* Test Item Value Reference Range Interpretation Comments Basophils # (Auto) (test code = 704-7) 0.1 0.0-0.1 [facility] CentennialAbsolute Immature Granulocyte (auto 2017-12-17 11:18:00* Test Item Value Reference Range Interpretation Comments Absolute Immature Granulocyte (auto (cris t code = Absolute Immature Granulocyte (auto) 0.03 0-0.1 [facility] Fcqfi9660-78-76 23:17:00* Test Item Value Reference Range Interpretation Comments Sodium Level (test code = 2951-2) 135 136-145 L [facility] CentennialPotassium Oyxhh2207-41-72 23:17:00* Test Item Value Reference Range Interpretation Comments Potassium Level (test code = 2823-3) 4.0 3.5-5.1 [facility] CentennialChloride Lmdlv0224-19-14 23:17:00* Test Item Value Reference Range Interpretation Comments Chloride Level (test code = 2075-0) 103 98-107 [facility] CentennialCarbon Dioxide Gzvjz6017-75-95 23:17:00* Test Item Value Reference Range Interpretation Comments Carbon Dioxide Level (test code = 2028-9) 24 22-29 [facility] CentennialAnion Dzx6002-88-46 23:17:00* Test Item Value Reference Range Interpretation Comments Anion Gap (test code = 78407-8) 12.0 8-16 [facility] CentennialBlood Urea Fwtiudkn3847-18-93 23:17:00* Test Item Value Reference Range Interpretation Comments Blood Urea Nitrogen (test code = 3094-0) 7 7-26 [facility] CentennialCreatinine2018-05-20 23:17:00* Test Item Value Reference Range Interpretation Comments Creatinine (test code = 2160-0) 0.72 0.57-1.11 [facility] CentennialBUN/Creatinine Ugzmn9760-20-58 23:17:00* Test Item Value Reference Range Interpretation Comments BUN/Creatinine Ratio (test code = 3097-3) 10 6-25 [facility] CentennialEstimat Glomerular Filtration Rate 2017-10-07 23:17:00* Test Item Value Reference Range Interpretation Comments Estimat Glomerular Filtration Rate (test code = 48938-0) 60- >60 Ranges were taken from the National Kidney Disease Education Program and the [facility] Kidney Foundation literature.Reference ranges:60 or greater: Ryozvg49-77 ( for 3 consecutive months): Chronic kidney disease 15 or less: Kidney failureBaylor Scott & White Medical Center – CentennialGlucose Wwkld6882-87-22 23:17:00* Test Item Value Reference Range Interpretation Comments Glucose Level (test code = BSW7203) 281 74-118 H [facility] CentennialCalcium Szcmm4723-33-81 23:17:00* Test Item Value Reference Range Interpretation Comments Calcium Level (test code = 59585-1) 9.4 8.4-10.2 [facility] CentennialTotal Whyveqizd3423-31-27 23:17:00* Test Item Value Reference Range Interpretation Comments Total Bilirubin (test code = 1975-2) 0.6 0.2-1.2 [facility] CentennialAspartate Amino Transf (AST/SGOT) 2017-10-07 23:17:00* Test Item Value Reference Range Interpretation Comments Aspartate Amino Transf (AST/SGOT) (test code = Aspartate Amino Transf (AST/SGOT)) 8 5-34 [facility] CentennialAlanine Aminotransferase (ALT/SGPT) 2017-10-07 23:17:00* Test Item Value Reference Range Interpretation Comments Alanine Aminotransferase (ALT/SGPT) (test code = 1742-6) 14 0-55 [facility] CentennialTotal Wsgckxv3342-95-71 23:17:00* Test Item Value Reference Range Interpretation Comments Total Protein (test code = 2885-2) 7.0 6.5-8.1 [facility] CentennialAlbumin2018-05-20 23:17:00* Test Item Value Reference Range Interpretation Comments Albumin (test code = 1751-7) 3.6 3.5-5.0 [facility] CentennialGlobulin2018-05-20 23:17:00* Test Item Value Reference Range Interpretation Comments Globulin (test code = 05056-0) 3.4 2.3-3.5 [facility] CentennialAlbumin/Globulin Hyfjz1036-60-68 23:17:00 * Test Item Value Reference Range Interpretation Comments Albumin/Globulin Ratio (test code = 1759-0) 1.1 0.8-2.0 [facility] CentennialAlkaline Qtvhptzsijn9926-01-93 23:17:00* Test Item Value Reference Range Interpretation Comments Alkaline Phosphatase (test code = 6768-6) 86 40-150 [facility] CentennialAmylase Nidsd5125-95-88 23:17:00* Test Item Value Reference Range Interpretation Comments Amylase Level (test code = 1798-8) 25 25-125 [facility] CentennialLipase2018-05-20 23:17:00* Test Item Value Reference Range Interpretation Comments Lipase (test code = 3040-3) 24 8-78 [facility] CentennialWhite Blood Wgtoi7555-59-15 22:58:00* Test Item Value Reference Range Interpretation Comments White Blood Count (test code = 6690-2) 12.10 4.8-10.8 H [facility] CentennialRed Blood Jdhfr9588-41-27 22:58:00* Test Item Value Reference Range Interpretation Comments Red Blood Count (test code = 789-8) 4.92 3.6-5.1 [facility] CentennialHemoglobin2018-05-20 22:58:00* Test Item Value Reference Range Interpretation Comments Hemoglobin (test code = 79848-0) 15.1 12.0-16.0 [facility] CentennialHematocrit2018-05-20 22:58:00* Test Item Value Reference Range Interpretation Comments Hematocrit (test code = 4544-3) 42.0 34.2-44.1 [facility] CentennialMean Corpuscular Lsqqzj2855-84-71 22:58:00* Test Item Value Reference Range Interpretation Comments Mean Corpuscular Volume (test code = 787-2) 85.4 81-99 [facility] CentennialMean Corpuscular Wkmwzwvpxp2307-26-90 22:58:00* Test Item Value Reference Range Interpretation Comments Mean Corpuscular Hemoglobin (test code = 785-6) 30.7 28-32 [facility] CentennialMean Corpuscular Hemoglobin Concent 2017-10-07 22:58:00* Test Item Value Reference Range Interpretation Comments Mean Corpuscular Hemoglobin Concent (test code = 786-4) 36.0 31-35 H [facility] CentennialRed Cell Distribution Rhgzs7751-67-38 22:58:00* Test Item Value Reference Range Interpretation Comments Red Cell Distribution Width (test code = 12123-7) 12.5 11.7 -14.4 [facility] CentennialPlatelet Phyur7507-15-56 22:58:00* Test Item Value Reference Range Interpretation Comments Platelet Count (test code = 777-3) 188 140-360 [facility] CentennialNeutrophils (%) (Auto)2017-10-07 22:58:00 * Test Item Value Reference Range Interpretation Comments Neutrophils (%) (Auto) (test code = 98254-0) 73.6 38.7-80.0 [facility] CentennialLymphocytes (%) (Auto)2017-10-07 22:58:00 * Test Item Value Reference Range Interpretation Comments Lymphocytes (%) (Auto) (test code = 736-9) 18.3 18.0-39.1 [facility] CentennialMonocytes (%) (Auto)2017-10-07 22:58:00* Test Item Value Reference Range Interpretation Comments Monocytes (%) (Auto) (test code = 5905-5) 4.3 4.4-11.3 L [facility] CentennialEosinophils (%) (Auto)2017-10-07 22:58:00 * Test Item Value Reference Range Interpretation Comments Eosinophils (%) (Auto) (test code = 713-8) 2.9 0.0-6.0 [facility] CentennialBasophils (%) (Auto)2017-10-07 22:58:00* Test Item Value Reference Range Interpretation Comments Basophils (%) (Auto) (test code = 706-2) 0.6 0.0-1.0 [facility] CentennialIM GRANULOCYTES %2017-10-07 22:58:00* Test Item Value Reference Range Interpretation Comments IM GRANULOCYTES % (test code = IM GRANULOCYTES %) 0.3 0.0- 1.0 [facility]ennialNeutrophils # (Auto)2017-10-07 22:58:00* Test Item Value Reference Range Interpretation Comments Neutrophils # (Auto) (test code = 751-8) 8.9 2.1-6.9 H [facility] CentennialLymphocytes # (Auto)2017-10-07 22:58:00* Test Item Value Reference Range Interpretation Comments Lymphocytes # (Auto) (test code = 21127-8) 2.2 1.0-3.2 [facility] CentennialMonocytes # (Auto)2017-10-07 22:58:00* Test Item Value Reference Range Interpretation Comments Monocytes # (Auto) (test code = 742-7) 0.5 0.2-0.8 [facility] CentennialEosinophils # (Auto)2017-10-07 22:58:00* Test Item Value Reference Range Interpretation Comments Eosinophils # (Auto) (test code = 711-2) 0.4 0.0-0.4 [facility] CentennialBasophils # (Auto)2017-10-07 22:58:00* Test Item Value Reference Range Interpretation Comments Basophils # (Auto) (test code = 704-7) 0.1 0.0-0.1 [facility] CentennialAbsolute Immature Granulocyte (auto 2017-10-07 22:58:00* Test Item Value Reference Range Interpretation Comments Absolute Immature Granulocyte (auto (cris t code = Absolute Immature Granulocyte (auto) 0.04 0-0.1 [facility]
== END 2020-03-19 11:04 | disposition home or self-care (01) ==
LOC: ER 09:55
DX: L02.11 Cutaneous abscess of neck (principal); F98.8 Other specified behavioral and emotional disorders with onset usually occurring in childhood and adolescence
CPT/HCPCS: 99283

== ENCOUNTER 2021-05-16 19:00 | Emergency (ER) | payer SELFPAY ==
[~2021-05-16] VITALS: Ht 162.6 cm; Wt 59.4 kg
[2021-05-16] MEDS ORDERED: SODIUM CHLORIDE 0.9% 1000ML 1,000 ML IV STA (19:55)
[2021-05-16] MEDS ORDERED: KETOROLAC TROMETHAMINE 30 MG/ML VIAL IV STA (19:55)
[2021-05-16 20:31] LABS: BASOPHILS % 0.7 % (0.0-1.0); EOSINOPHILS # (AUTO) 0.1 (0.0-0.4); EOSINOPHILS % 2.4 % (0.0-6.0); HEMOGLOBIN 16.4 g/dL (12.0-16.0); LYMPHOCYTES # (AUTO) 2.8 (1.0-3.2); LYMPHOCYTES % 47.8 % (18.0-39.1); MEAN CORPUSCULAR HGB CONC 34.9 g/dL (31-35); MEAN CORPUSCULAR VOLUME 85.9 fL (81-99); MONOCYTES # (AUTO) 0.4 (0.2-0.8); MONOCYTES % 6.4 % (4.4-11.3); NEUTROPHILS # (AUTO) 2.5 (2.1-6.9); NEUTROPHILS % 42.5 % (38.7-80.0); PLATELET COUNT 180 x10e3/uL (140-360); RED BLOOD COUNT 5.47 x10e6/uL (3.6-5.1); RED CELL DISTRIBUTION WIDTH 12.5 % (11.7-14.4)
[2021-05-16 20:36] LABS: INR 1.02; PROTHROMBIN TIME 14.2 seconds (11.9-14.5)
[2021-05-16 20:39] LABS: CLARITY,URINE SL CLOUDY (CLEAR); COLOR,URINE AMBER (YELLOW); KETONES,URINE 2+ (NEGATIVE); LEUKOCYTE ESTERASE ,URINE NEGATIVE (NEGATIVE); NITRITE,URINE NEGATIVE (NEGATIVE); PROTEIN,URINE DIPSTICK 2+ (NEGATIVE); URINE UROBILINOGEN 0.2 mg/dL (0.2 - 1)
[2021-05-16 20:43] LABS: ALBUMIN/GLOBULIN RATIO 1.2 (0.8-2.0); ANION GAP 17.5 mmol/L (8-16); CALCIUM 9.1 mg/dL (8.4-10.2); CREATININE, SERUM 0.7 mg/dL (0.57-1.11); POTASSIUM 3.5 mmol/L (3.5-5.1)
[2021-05-16 20:50] LABS: BACTERIA,URINE MODERATE /HPF; EPITHELIAL CELLS,URINE MODERATE /LPF
[2021-05-16 20:51] LABS: CREATINE KINASE MB 0.6 ng/mL (0-5.0)
[2021-05-16] MEDS ORDERED: MAGNESIUM CITR296 ML PO (22:02)
[2021-05-16] MEDS ORDERED: IBUPROFEN600 MG PO (22:02)
[2021-05-16] MEDS ORDERED: DULCOLAX10 MG PR (22:02)
[2021-05-16] MEDS ORDERED: COLACE100 MG PO (22:02)
== END 2021-05-16 22:15 | disposition home or self-care (01) ==
LOC: ER 19:19
DX: K59.00 Constipation, unspecified (principal); Z88.1 Allergy status to other antibiotic agents; Z91.040 Latex allergy status; Z88.0 Allergy status to penicillin; Z91.018 Allergy to other foods
CPT/HCPCS: 36415; 71045; 74176; 80053; 81001; 81025; 82550; 82553; 83880; 84484; 85025; 85610; 85730; 93005; 99284; J1885; J7030

== ENCOUNTER 2025-02-27 09:39 | Emergency (ER) | payer SELFPAY ==
[~2025-02-27] VITALS: Ht 160 cm; Wt 58.1 kg
[~2025-02-27 09:39] MED LIST: COLACE100 MG PO; DULCOLAX10 MG PR; IBUPROFEN600 MG PO; MAGNESIUM CITR296 ML PO; ONDANSETRON ODT4 MG PO
[2025-02-27 10:02] VITALS: PULSE 83; RESP 17; TEMP 97.8
[2025-02-27] MEDS: SODIUM CHLORIDE 0.9% 1000ML 1,000 ML IV STA ×2 (10:59→12:39)
[2025-02-27 11:20] LABS: ABG HCO3 21 mmol/L (22-26); ABG PCO2 34 mmHg (35-45); ABG PH 7.41 (7.35-7.45); ABG PO2 100 mmHg (80-105); ABG TCO2 22
[2025-02-27 11:21] LABS: ABG BASE EXCESS -4.0 mmol/L (-2 - 3); ABG OXYGEN SATURATION 99.0 % (95-98)
[2025-02-27 11:29] LABS: BASOPHILS % 0.8 % (0.0-1.0); EOSINOPHILS % 4.0 % (0.0-6.0); LYMPHOCYTES % 25.8 % (18.0-39.1); MONOCYTES % 4.3 % (4.4-11.3); NEUTROPHILS % 64.9 % (38.7-80.0); RED CELL DISTRIBUTION WIDTH 16.7 % (11.7-14.4)
[2025-02-27 11:53] LABS: AMPHETAMINES SCREEN,URINE POSITIVE (NEGATIVE); LEUKOCYTE ESTERASE ,URINE NEGATIVE (NEGATIVE); OPIATES SCREEN,URINE NEGATIVE (NEGATIVE); PROTEIN,URINE DIPSTICK NEGATIVE (NEGATIVE)
[2025-02-27 11:54] LABS: CANNABINOIDS SCREEN,URINE POSITIVE (NEGATIVE); COCAINE SCREEN,URINE NEGATIVE (NEGATIVE); EPITHELIAL CELLS,URINE MODERATE /LPF; METHADONE SCREEN, URINE NEGATIVE (NEGATIVE); URINE UROBILINOGEN 0.2 mg/dL (0.2 - 1); WBC,URINE (MAN) 0-5 /HPF (0-5)
[2025-02-27 12:47] LABS: INR 1.21
[2025-02-27 12:53] LABS: EST GLOMERULAR FILTRATION RATE 108 ML/MIN (>=60)
[2025-02-27 14:21] VITALS: BP 124/84; PULSE 71; RESP 18; TEMP 98.3; O2SAT 98
== END 2025-02-27 14:15 | disposition short-term general hospital (02) ==
LOC: ER 10:21
DX: E86.0 Dehydration (principal); R82.4 Acetonuria; E11.9 Type 2 diabetes mellitus without complications; F98.8 Other specified behavioral and emotional disorders with onset usually occurring in childhood and adolescence
CPT/HCPCS: 36415; 36600; 71045; 80053; 80307; 81001; 82550; 82805; 82948; 83735; 84484; 84702; 85025; 85610; 85730; 99284; J7030